=== PATIENT | male | born 1995 | race Caucasian/White ===

== ENCOUNTER 2019-01-30 00:20 | Emergency (ER) | payer MEDICAID ==
[~2019-01-30] VITALS: Ht 167.6 cm; Wt 73.0 kg
[2019-01-30 00:27] VITALS: BP 115/67
== END 2019-01-30 01:24 | disposition left against medical advice (07) ==
LOC: ER 00:20
DX: R07.89 Other chest pain (principal); Z53.21 Procedure and treatment not carried out due to patient leaving prior to being seen by health care provider
CPT/HCPCS: 93005